=== PATIENT | female | born 1970 | race Caucasian/White ===

== ENCOUNTER 2016-07-06 08:52 | Emergency (ER) | payer OTHER ==
[~2016-07-06] VITALS: Ht 160 cm; Wt 87.1 kg
[2016-07-06 10:09] VITALS: BP 112/50
== END 2016-07-06 10:09 | disposition home or self-care (01) ==
LOC: ED 08:52
DX: J30.9 Allergic rhinitis, unspecified (principal); F90.9 Attention-deficit hyperactivity disorder, unspecified type

== ENCOUNTER 2017-07-31 18:04 | Emergency (ER) | payer OTHER ==
[~2017-07-31] VITALS: Ht 160 cm; Wt 83.0 kg
[2017-07-31 18:09] VITALS: Ht 160 cm; Wt 83.0 kg
[2017-07-31 21:20] VITALS: BP 118/63
== END 2017-07-31 21:20 | disposition home or self-care (01) ==
LOC: ED 18:04
DX: S20.211A Contusion of right front wall of thorax, initial encounter (principal); M25.511 Pain in right shoulder; Y04.0XXA Assault by unarmed brawl or fight, initial encounter; Y93.89 Activity, other specified; Y92.89 Other specified places as the place of occurrence of the external cause; Y99.8 Other external cause status

== ENCOUNTER 2017-11-08 09:30 | Emergency (ER) | payer SELFPAY ==
[~2017-11-08] VITALS: Ht 160 cm; Wt 85.3 kg
[2017-11-08 09:35] VITALS: Ht 160 cm; Wt 85.3 kg
[2017-11-08 10:42] LABS: CALCIUM 7.7 mg/dL (8.5-10.1); CARBON DIOXIDE 27.1 mmol/L (21-32); CHLORIDE SERUM 105 mmol/L (98-107); CREATININE SERUM 0.6 mg/dL (0.6-1.0); GFR1 > 60 mL/min; GLUCOSE SERUM 96 mg/dL (74-106); POTASSIUM SERUM 3.9 mmol/L (3.5-5.1); SODIUM SERUM 139 mmol/L (136-145)
[2017-11-08 10:46] LABS: BASOPHIL % 0.6 % (0-2); PLATELET COUNT 212 x10^3mcL (130-400); RED CELL DISTRIBUTION WIDTH 13.8 % (11.5-14.5)
[2017-11-08 11:30] VITALS: BP 107/70
== END 2017-11-08 11:59 | disposition home or self-care (01) ==
LOC: ED 09:30
PROVIDERS: Emergency Medicine
DX: R42 Dizziness and giddiness (principal); R53.1 Weakness; E83.51 Hypocalcemia; R11.2 Nausea with vomiting, unspecified
CPT/HCPCS: 82962; J2405; J7030; J8597; Q0092; Q0162